=== PATIENT | female | born 1940 | race Caucasian/White ===

== ENCOUNTER → 2018-08-04 | Outpatient (CLI) | payer MEDICARE ==
--- NOTE | 2018-08-11 17:29 | Polysomnography ---
DATE OF STUDY: REFERRING PHYSICIAN: STUDY: Polysomnography report. REFERRING PHYSICIAN: Dr. Overton. HISTORY OF PRESENT ILLNESS: The patient is a 78-year-old woman. She has a history of intermittent apnea. She also has some snoring. She complains of daytime somnolence. INTERPRETATION: The patient came to the laboratory for a diagnostic study. The patient slept for 291 minute out of 395.7 minutes. The sleep efficiency was 77.3%. The sleep onset latency was 22 minutes and 52 seconds. The latency to REM was 77 minutes. The patient spent 51 minute in REM sleep which was 17.5% of the night. There were 110 apneic events and one hypopnea events. The apnea-hypopnea index was 22.9 events per hour. The minimal saturation was 84%. The minimal heart rate was 48 beats per minute. The patient spent 0.3% of the night in the supine position. The remainder of the night was in the non-supine position. The [place] sleep score was 6. IMPRESSION: Moderate obstructive sleep apnea. RECOMMENDATIONS: 1. Second night sleep study with CPAP titration. 2. Avoid alcohol or sedatives prior to retiring at night. 3. Achieve and maintain an ideal body weight. MD BRYAN Quiroz/PINKY /[id number]
== END ==
LOC: SLEEP 19:49
PROVIDERS: ATTEND Internal Medicine
DX: G47.30 Sleep apnea, unspecified (principal); I45.5 Other specified heart block
CPT/HCPCS: 95810

== ENCOUNTER → 2018-09-09 | Outpatient (CLI) | payer MEDICARE ==
--- NOTE | 2018-09-17 08:34 | Polysomnography ---
DATE OF STUDY: REFERRING PHYSICIAN: STUDY: Polysomnography report. REFERRING PHYSICIAN: Dr. Corea. HISTORY OF PRESENT ILLNESS: The patient has some snoring at night. The patient has some apnea at night. The patient also has increased daytime somnolence. INTERPRETATION: The patient had a prior sleep study that showed an apnea-hypopnea index of 22.9. The patient now returns for a second night study with CPAP titration. The patient slept for 304.5 minutes out of 388 minutes. The sleep efficiency was 78.5%. The sleep onset latency was 19 minutes. The latency to REM was 69 minutes. The patient had 58.5 minutes in REM sleep, which was 19.2% of the night. The minimal saturation was 93%. The minimal heart rate was 52 beats per minute. The [place] sleep score was 14. The roll cutting operator desensitized the patient to CPAP. The patient initiated CPAP at 4 cm of water pressure and increased up to 16 cm of water pressure. At 16 cm of water pressure, the nocturnal events and snoring were successfully eliminated. IMPRESSION: 1. Moderate obstructive sleep apnea. 2. Successful treatment of obstructive sleep apnea with CPAP. 3. Nocturnal bradycardia. RECOMMENDATIONS: 1. CPAP at 16 cm water pressure. 2. Heated humidifier with CPAP. 3. Avoid alcohol or sedatives prior to retiring at night. 4. Follow up in 3 months to ensure efficacy and compliance with CPAP. 5. Holter monitor and/or cardiac evaluation to evaluate nocturnal bradycardia. MD BRYAN Quiroz/PINKY /[id number]
== END ==
LOC: SLEEP 20:36
PROVIDERS: ATTEND Internal Medicine
DX: G47.33 Obstructive sleep apnea (adult) (pediatric) (principal)
CPT/HCPCS: 95811